=== PATIENT | male | born 1985 | race African-American/Black ===

== ENCOUNTER 2017-03-28 11:22 | Emergency (ER) | payer SELFPAY ==
--- NOTE | 2017-03-28 12:34 | ER Document Report ---
HPI - HPI Patient complains to provider of: urinary frequency, low back pain, thigh pain Onset: Last week Onset/Duration: Sudden Quality of pain: Sharp Pain Level: 2 Context: Patient presents emergency department with complaints of urinary frequency for the past week. Patient also reports low back pain and sharp pain that comes and goes to his thighs. Denies trauma. He denies fever vomiting diarrhea. He denies penile discharge. He denies testicular pain. He denies pain with void. Patient also denies pain with sex and denies pain with ejaculation. Denies urinary or bowel incontinence or retention. Denies numbness tingling. Associated Symptoms: None Exacerbated by: Denies Relieved by: Denies Similar symptoms previously: No Recently seen / treated by doctor: No - DERM Skin Color: Normal, [place] Past Medical History - General Information source: Patient - Social History Smoking Status: Current Every Day Smoker Cigarette use (# per day): Yes Frequency of alcohol use: Heavy Drug Abuse: Marijuana Occupation: [id number] Family History: DM - mom Patient has suicidal ideation: No Patient has homicidal ideation: No - Medical History Medical History: Negative Renal/ Medical History: Denies: Hx Peritoneal Dialysis Surgical Hx: Negative Vertical Provider Document - CONSTITUTIONAL Agree With Documented VS: Yes Exam Limitations: No Limitations General Appearance: WD/WN, No Apparent Distress - INFECTION CONTROL TRAVEL OUTSIDE OF THE [place] IN LAST 30 DAYS: No - HEENT HEENT: Atraumatic, Normocephalic - NECK Neck: Normal Inspection, Supple. negative: Lymphadenopathy-Left, Lymphadenopathy-Right - RESPIRATORY Respiratory: Breath Sounds Normal, No Respiratory Distress O2 Sat by Pulse Oximetry: 99 - CARDIOVASCULAR Cardiovascular: Regular Rate, Regular Rhythm - GI/ABDOMEN Gastrointestinal: Abdomen Soft, Abdomen Non-Tender - BACK Back: Normal Inspection - No obvious deformity take good distal movement and sensation - MUSCULOSKELETAL/EXTREMETIES Musculoskeletal/Extremeties: MAEW, FROM, Non-Tender - NEURO Level of Consciousness: Awake, Alert, Appropriate Motor/Sensory: No Motor Deficit - DERM Integumentary: Warm, Dry Course - Re-evaluation Re-evalutation: 03/28/17 12:32 Patient instructed on STD cultures pending and UA pending. Patient reports he doesn't think he has an STD. We will wait for the UA and discharge, contact patient with the culture results. 03/28/17 13:05 UA negative, pt informed he will be contacted for positive STD cultures. He was instructed follow up with his primary care provider or the health department. He verbalized understanding to all instructions. 03/28/17 16:38 +chlamydia, attempted to contact patient without sucess, message left to contact the culture nurse or myself at [phone] - Vital Signs Vital signs: Temp Pulse Resp BP Pulse Ox 98.5 F 80 18 141/91 H 99 03/28/17 11:25 03/28/17 11:25 03/28/17 11:25 03/28/17 11:25 03/28/17 11:25 Discharge - Discharge Clinical Impression: Urinary frequency, Elevated blood pressure reading Condition: Stable Disposition: HOME, SELF-CARE Instructions: [facility] [place] Additional Instructions: *You have been evaluated for urinary frequency *The STD cultures are pending, you will be contacted should you need antibiotics *Take medication as prescribed *Push fluids *Follow up with your primary care provider or the health department within one week for recheck. *Plan urine recheck in one week *Return to ED for worsening condition, changes, needs Monitor your blood pressure. Your blood pressure was elevated today. This may be because you were anxious, in pain or because you need medication. It is important to follow up with your primary care provider for full evaluation. Forms: Elevated Blood Pressure, Return to Work
[2017-03-28 12:56] LABS: APPEARANCE,URINE CLEAR; BILIRUBIN,URINE NEGATIVE (NEGATIVE); GLUCOSE, URINE NEGATIVE (NEGATIVE); KETONES,URINE NEGATIVE (NEGATIVE); LEUKOCYTE ESTERASE,URINE NEGATIVE (NEGATIVE); NITRITE,URINE NEGATIVE (NEGATIVE); PROTEIN,URINE NEGATIVE (NEGATIVE); URINE SPECIFIC GRAVITY 1.021
[2017-03-28 13:26] VITALS: BP 135/85
[2017-03-28 14:11] LABS: CHLAM PCR DETECTED (NOT DETECT)
== END 2017-03-28 13:27 | disposition home or self-care (01) ==
LOC: ER 11:22
DX: R35.0 Frequency of micturition (principal); M54.5 Low back pain; R03.0 Elevated blood-pressure reading, without diagnosis of hypertension; M79.652 Pain in left thigh; M79.651 Pain in right thigh; F17.210 Nicotine dependence, cigarettes, uncomplicated
CPT/HCPCS: 81001; 87491; 87591; 99283

== ENCOUNTER 2017-06-02 13:37 | Emergency (ER) | payer MEDICARE, MEDICAID ==
--- NOTE | 2017-06-02 14:57 | ER Document Report ---
ED General Pain - General Chief Complaint: Pain All Over Stated Complaint: BODY PAIN Time Seen by Provider: 06/02/17 14:20 Mode of Arrival: Ambulatory Information source: Patient Notes: 1-year-old male presents to ED for pain all over. He states it started in his left shoulder now hurts everywhere. Denies any fever does have chronic migraines. States he came in a couple months ago for the same thing and found it that he had chlamydia was treated states he waited several days patient and his partner were treated them they had sex again. Has a history history of migraines and he is a heavy drinker states he has a lot of belly pain back pain shoulder pain does not do any heavy lifting. TRAVEL OUTSIDE OF THE [place] IN LAST 30 DAYS: No - HPI Onset: Other - 4-5 days Onset/Duration: Sudden Quality of pain: Achy Severity: Mild Pain Level: 1 Context: General body pain Associated symptoms: None Exacerbated by: Movement Relieved by: Denies Similar symptoms previously: Yes Recently seen / treated by doctor: No - Related Data Allergies/Adverse Reactions: No Known Allergies Allergy (Unverified 03/28/17 11:25) Past Medical History - General Information source: Patient - Social History Smoking Status: Current Every Day Smoker Cigarette use (# per day): Yes - Pack per day Chew tobacco use (# tins/day): No Smoking Education Provided: Yes - Less than 2 minutes Frequency of alcohol use: Heavy Drug Abuse: Marijuana Occupation: At this time Lives with: Spouse/Significant other Family History: Arthritis, DM - mom, Hypertension. denies: CAD, COPD, CVA, Hyperlipidemia, Malignancy, Thyroid Disfunction Patient has suicidal ideation: No Patient has homicidal ideation: No - Past Medical History Cardiac Medical History: Reports: None Pulmonary Medical History: Reports: None EENT Medical History: Reports: None Neurological Medical History: Reports: Hx Migraine Endocrine Medical History: Reports: None Renal/ Medical History: Reports: None. Denies: Hx Peritoneal Dialysis Malignancy Medical History: Reports None GI Medical History: Reports: Hx Gastroesophageal Reflux Disease Musculoskeltal Medical History: Reports Hx Arthritis, Reports Hx Musculoskeletal Deformity, Reports Hx Musculoskeletal Trauma Skin Medical History: Reports None Psychiatric Medical History: Reports: None Traumatic Medical History: Reports: Hx Fractures Infectious Medical History: Reports: None Past Surgical History: Reports: Hx Orthopedic Surgery - Tendon repaired to finger Review of Systems - Review of Systems Constitutional: No symptoms reported EENT: No symptoms reported Cardiovascular: No symptoms reported Respiratory: No symptoms reported Gastrointestinal: No symptoms reported Genitourinary: No symptoms reported Male Genitourinary: No symptoms reported Musculoskeletal: Muscle pain Skin: No symptoms reported Hematologic/Lymphatic: No symptoms reported Neurological/Psychological: Headaches -: Yes All other systems reviewed and negative Physical Exam - Vital signs Vitals: Temp Pulse Resp BP Pulse Ox 98.6 F 89 18 155/104 H 99 06/02/17 13:50 06/02/17 13:50 06/02/17 13:50 06/02/17 13:50 06/02/17 13:50 Interpretation: Normal - General General appearance: Appears well, Alert - HEENT Head: Normocephalic, Atraumatic Eyes: Normal Pupils: PERRL - Respiratory Respiratory status: No respiratory distress Chest status: Nontender Breath sounds: Normal Chest palpation: Normal - Cardiovascular Rhythm: Regular Heart sounds: Normal auscultation Murmur: No - Abdominal Inspection: Normal Distension: No distension. No: Distended Bowel sounds: Normal Tenderness: Nontender. No: Tender Organomegaly: No organomegaly - Back Back: Normal, Nontender - Extremities General upper extremity: Normal inspection, Nontender, Normal color, Normal ROM , Normal temperature General lower extremity: Normal inspection, Nontender, Normal color, Normal ROM , Normal temperature, Normal weight bearing. No: Elaine's sign - Neurological Neuro grossly intact: Yes Cognition: Normal Orientation: AAOx4 Zoran Coma Scale Eye Opening: Spontaneous Epes Coma Scale Verbal: Oriented Zoran Coma Scale Motor: Obeys Commands Epes Coma Scale Total: 15 Speech: Normal Motor strength normal: LUE, RUE, LLE, RLE Sensory: Normal - Psychological Associated symptoms: Normal affect, Normal mood - Skin Skin Temperature: Warm Skin Moisture: Dry Skin Color: Normal Course - Vital Signs Vital signs: Temp Pulse Resp BP Pulse Ox 98.6 F 73 18 138/97 H 99 06/02/17 13:50 06/02/17 15:55 06/02/17 15:55 06/02/17 15:55 06/02/17 15:55 Discharge - Discharge Clinical Impression: Body aches, Concern about STD in male without diagnosis Condition: Stable Disposition: HOME, SELF-CARE Instructions: Family Physicians / Practices Additional Instructions: Seen today for body aches and concern for STD. Urinalysis was negative but your GC and chlamydia will not be ready for 3 hours. Please call [phone] between 6 and 9 for your results and ask for Willie. Treated with Rocephin and Zithromax and before you leave today. Rocephin You have been given an injection of an antibiotic called Rocephin ( ceftriaxone). Sometimes the injection must be combined with antibiotic pills. For some infections, such as an uncomplicated ear infection, Rocephin provides all the antibiotic that's needed. The antibiotic will be in your body for about two days. For serious infections, we usually repeat doses of Rocephin daily. Side effects are very unusual following a shot. Women may develop vaginal yeast infections, and babies can get yeast (thrush) in the mouth following the use of antibiotics. Contact your physician if you have symptoms with this medication. Allergy to this antibiotic can result in hives, wheezing, faintness, or itching. If symptoms of allergy occur, call the doctor at once. AZITHROMYCIN: Azithromycin (Zithromax) is a broad spectrum antibiotic in the same class as erythromycin. It can treat a variety of bacterial infections, but is most frequently used for respiratory infections. Azithromycin is extremely long-lasting. It accumulates in body tissues and continues to kill bacteria for many days. In order to improve absorption, Azithromycin should be taken at least one hour before or two hours after a meal. It does not have the same strong tendency to upset the stomach as erythromycin and is usually very well tolerated. Patients who have had a rash or other true allergic reactions to erythromycin should not take this medication. Call if you develop gastrointestinal distress, severe diarrhea, rash, hives, itching, or shortness of breath. FOLLOW-UP CARE: If you have been referred to a physician for follow-up care, call the physician s office for an appointment as you were instructed or within the next two days. If you experience worsening or a significant change in your symptoms, notify the physician immediately or return to the Emergency Department at any time for re-evaluation. Forms: Elevated Blood Pressure, Smoking Cessation Education
[2017-06-02 15:20] LABS: APPEARANCE,URINE CLEAR; BILIRUBIN,URINE NEGATIVE (NEGATIVE); GLUCOSE, URINE NEGATIVE (NEGATIVE); KETONES,URINE NEGATIVE (NEGATIVE); LEUKOCYTE ESTERASE,URINE NEGATIVE (NEGATIVE); NITRITE,URINE NEGATIVE (NEGATIVE); PROTEIN,URINE NEGATIVE (NEGATIVE); URINE SPECIFIC GRAVITY 1.027; UROBILINOGEN,URINE NEGATIVE mg/dL (<2.0)
[2017-06-02] MEDS ORDERED: LIDOCAINE 1% INJ-PF (10 MG/ML) 30 ML SDV INJ ONE (15:36)
[2017-06-02] MEDS ORDERED: AZITHROMYCIN 250 MG TABLET PO ONE (15:36)
[2017-06-02] MEDS ORDERED: CEFTRIAXONE INJ 250 MG VIAL IM ONE (15:36)
[2017-06-02 15:56] VITALS: BP 138/97
[2017-06-02 16:47] LABS: CHLAM PCR NOT DETECTED (NOT DETECT)
== END 2017-06-02 16:11 | disposition home or self-care (01) ==
LOC: ER 13:37
DX: M79.1 Myalgia (principal); M25.519 Pain in unspecified shoulder; R51 Headache; F17.210 Nicotine dependence, cigarettes, uncomplicated; Z20.2 Contact with and (suspected) exposure to infections with a predominantly sexual mode of transmission
CPT/HCPCS: 99283; 96372; 81001; 87491; 87591; A9270; J3490; J0696

== ENCOUNTER 2018-01-02 11:56 | Emergency (ER) | payer MEDICAID, MEDICARE ==
[2018-01-02] MEDS ORDERED: IBUPROFEN 800 MG TABLET PO ONE (13:44)
[2018-01-02] MEDS ORDERED: PSEUDOEPHEDRINE HCL 30 MG TABLET PO ONE (13:46)
--- NOTE | 2018-01-02 13:51 | ER Document Report ---
HPI - HPI Onset: Yesterday Onset/Duration: Gradual Quality of pain: Achy Pain Level: 2 Context: Patient presents with flulike symptoms that started yesterday. Patient complains of cough, fever and body aches. Associated Symptoms: Body/muscle aches, Nonproductive cough, Fever, Rhinnorhea Exacerbated by: Denies Relieved by: Denies Similar symptoms previously: No Recently seen / treated by doctor: No - ROS ROS below otherwise negative: Yes Systems Reviewed and Negative: Yes All other systems reviewed and negative - CONSTITUTIONAL Constitutional: REPORTS: Fever, Chills - EENT EENT: REPORTS: Sore Throat, Congestion - RESPIRATORY Respiratory: REPORTS: Coughing - GASTROINTESTINAL Gastrointestinal: DENIES: Patient vomiting - DERM Skin Color: Normal Skin Problems: None Past Medical History - General Information source: Patient - Social History Smoking Status: Current Every Day Smoker Smoking Education Provided: Yes Frequency of alcohol use: Occasional Drug Abuse: None Occupation: stocking Lives with: Family Family History: Arthritis, DM - mom, Hypertension. denies: CAD, COPD, CVA, Hyperlipidemia, Malignancy, Thyroid Disfunction Neurological Medical History: Reports: Hx Migraine Renal/ Medical History: Denies: Hx Peritoneal Dialysis GI Medical History: Reports: Hx Gastroesophageal Reflux Disease Musculoskeltal Medical History: Reports Hx Arthritis, Reports Hx Musculoskeletal Deformity, Reports Hx Musculoskeletal Trauma Traumatic Medical History: Reports: Hx Fractures Past Surgical History: Reports: Hx Orthopedic Surgery - Tendon repaired to finger Vertical Provider Document - CONSTITUTIONAL Agree With Documented VS: Yes Exam Limitations: No Limitations General Appearance: WD/WN, No Apparent Distress - INFECTION CONTROL TRAVEL OUTSIDE OF THE [place] IN LAST 30 DAYS: No - HEENT HEENT: Atraumatic, Normocephalic, Pharyngeal Erythema. negative: Pharyngeal Exudate, Pharyngeal Tenderness, Tympanic Membrane Red, Tympanic Membrane Bulging - NECK Neck: Normal Inspection, Supple. negative: Lymphadenopathy-Left, Lymphadenopathy-Right - RESPIRATORY Respiratory: Breath Sounds Normal, No Respiratory Distress, Chest Non-Tender O2 Sat by Pulse Oximetry: 99 Notes: dry cough - CARDIOVASCULAR Cardiovascular: Regular Rate, Regular Rhythm, No Murmur - BACK Back: Normal Inspection - MUSCULOSKELETAL/EXTREMETIES Musculoskeletal/Extremeties: MAEW, FROM - NEURO Level of Consciousness: Awake, Alert, Appropriate Motor/Sensory: No Motor Deficit - DERM Integumentary: Warm, Dry, No Rash Course - Re-evaluation Re-evalutation: 01/02/18 13:47 Patient presents with symptoms consistent with a flulike illness. Patient does present within the first 48 hours of symptom onset. Patient offered Tamiflu prescription per CDC guidelines. Discussed efficacy and side effect profile with patient. - Vital Signs Vital signs: Temp Pulse Resp BP Pulse Ox 99.0 F 101 H 20 156/95 H 99 01/02/18 12:30 01/02/18 12:30 01/02/18 12:30 01/02/18 12:30 01/02/18 12:30 Discharge - Discharge Clinical Impression: Elevated blood pressure reading, Flu-like symptoms Condition: Stable Disposition: HOME, SELF-CARE Instructions: Influenza (OM) Additional Instructions: Return immediately for any new or worsening symptoms Followup with your primary care provider, call tomorrow to make a followup appointment Prescriptions: Guaifenesin/Pseudoephedrne HCl [Mucinex D ER Tablet] 1 each PO Q12 PRN #12 tab.er.12h PRN Reason: Naproxen [Naprosyn 250 Nmg Tablet] 1 tab PO BID #14 tablet Forms: Elevated Blood Pressure, Smoking Cessation Education, Return to Work Referrals: [facility] [Provider Group] - Follow up as needed [facility] [Provider Group] - Follow up as needed
[2018-01-02 14:00] VITALS: BP 141/97
== END 2018-01-02 14:03 | disposition home or self-care (01) ==
LOC: ER 11:56
DX: R05 Cough (principal); R50.9 Fever, unspecified; M79.1 Myalgia; J34.89 Other specified disorders of nose and nasal sinuses; R11.10 Vomiting, unspecified; R03.0 Elevated blood-pressure reading, without diagnosis of hypertension; F17.200 Nicotine dependence, unspecified, uncomplicated; Z82.49 Family history of ischemic heart disease and other diseases of the circulatory system
CPT/HCPCS: 99283; A9270 ×2

== ENCOUNTER 2018-02-11 08:18 | Emergency (ER) | payer MEDICARE ==
[2018-02-11 08:25] VITALS: BP 153/93
--- NOTE | 2018-02-11 08:59 | RADIOLOGY REPORT (SQ) ---
EXAM DESCRIPTION: HAND RIGHT 3 VIEWS COMPLETED DATE/TIME: 02/11/2018 8:42 am REASON FOR STUDY: sudde onset right hand pain COMPARISON: None. EXAM PARAMETERS: NUMBER OF VIEWS: Three views. TECHNIQUE: AP, lateral and oblique radiographic images acquired of the right hand. LIMITATIONS: None. FINDINGS: MINERALIZATION: Normal. BONES: No acute fracture or dislocation. No worrisome bone lesions. No significant osteophytes. JOINTS: No erosions. No tim-articular osteopenia. No chondrocalcinosis. SOFT TISSUES: No swelling. No calcifications. OTHER: No other significant finding. IMPRESSION: NEGATIVE STUDY OF THE RIGHT HAND. NO EXPLANATION FOR PAIN. TECHNICAL DOCUMENTATION: JOB ID: [id number] [employer] All Rights Reserved Reading location - IP/workstation name: [email or web address]
--- NOTE | 2018-02-11 09:18 | ER Document Report ---
ED General - General Chief Complaint: Hand Pain Stated Complaint: HAND PAIN Time Seen by Provider: 02/11/18 08:27 Mode of Arrival: Ambulatory Information source: Patient, Relative TRAVEL OUTSIDE OF THE [place] IN LAST 30 DAYS: No - HPI Notes: 32-year-old male presents today with complaints of right hand swelling and tenderness near his thumb and first 2 fingers on the palmar side 6 days. Pain is a dull ache, tried ibuprofen with some relief. Denies any trauma. Patient is not currently working however some time doing video games. Patient is right- hand dominant. Denies any numbness or tingling in hands or arm. States sometimes he does get a shooting pain up his arm. Denies any prior history of hand trauma or neuropathy. Denies prior history of shoulder or neck injury. Pain is 2 out of 10. Denies fevers, chills, chest pain,palpitations, shortness of breath, dyspnea, headaches, URI, neck pain, weakness, bowel or bladder dysfunction, saddle anesthesia, numbness or tingling in bilateral upper or lower extremities equally, muscle paralysis, weakness in bilateral upper or lower extremities equally or rash. Denies IV drug use. - Related Data Allergies/Adverse Reactions: No Known Allergies Allergy (Verified 01/02/18 11:57) Past Medical History - Social History Smoking Status: Current Every Day Smoker Chew tobacco use (# tins/day): No Frequency of alcohol use: Occasional Drug Abuse: None Family History: Arthritis, DM - mom, Hypertension. denies: CAD, COPD, CVA, Hyperlipidemia, Malignancy, Thyroid Disfunction Patient has suicidal ideation: No Patient has homicidal ideation: No Neurological Medical History: Reports: Hx Migraine Renal/ Medical History: Denies: Hx Peritoneal Dialysis GI Medical History: Reports: Hx Gastroesophageal Reflux Disease Musculoskeltal Medical History: Reports Hx Arthritis, Reports Hx Musculoskeletal Deformity, Reports Hx Musculoskeletal Trauma Traumatic Medical History: Reports: Hx Fractures Past Surgical History: Reports: Hx Orthopedic Surgery - Tendon repaired to finger, right knee Review of Systems - Review of Systems Notes: REVIEW OF SYSTEMS: CONSTITUTIONAL : Denies fever, chills, or sweats. Denies recent illness. EENT: Denies eye, ear, throat, or mouth pain or symptoms. Denies nasal or sinus congestion or discharge. Denies throat, tongue, or mouth swelling or difficulty swallowing. CARDIOVASCULAR: Denies chest pain. Denies palpitations or racing or irregular heart beat. Denies ankle edema. RESPIRATORY: Denies cough, cold, or chest congestion. Denies shortness of breath, difficulty breathing, or wheezing. GASTROINTESTINAL: Denies abdominal pain or distention. Denies nausea, vomiting , or diarrhea. Denies blood in vomitus, stools, or per rectum. Denies black, tarry stools. Denies constipation. GENITOURINARY: Denies difficulty urinating, painful urination, burning, frequency, blood in urine, or discharge. MUSCULOSKELETAL: + right hand pain and swelling. Denies back or neck pain or stiffness. Denies joint pain or swelling. SKIN: Denies rash, lesions or sores. HEMATOLOGIC : Denies easy bruising or bleeding. LYMPHATIC: Denies swollen, enlarged glands. NEUROLOGICAL: Denies confusion or altered mental status. Denies passing out or loss of consciousness. Denies dizziness or lightheadedness. Denies headache. Denies weakness or paralysis or loss of use of either side. Denies problems with gait or speech. Denies sensory loss, numbness, or tingling. Denies seizures. PSYCHIATRIC: Denies anxiety or stress. Denies depression, suicidal ideation, or homicidal ideation. ALL OTHER SYSTEMS REVIEWED AND NEGATIVE. Dictation was performed using [email or web address] voice recognition software PHYSICAL EXAMINATION: GENERAL: Well-appearing, well-nourished and in no acute distress. HEAD: Atraumatic, normocephalic. EYES: Pupils equal round and reactive to light, extraocular movements intact, sclera anicteric, conjunctiva are normal. ENT: Nares patent, oropharynx clear without exudates. Moist mucous membranes. NECK: Normal range of motion, supple without lymphadenopathy LUNGS: Breath sounds clear to auscultation bilaterally and equal. No wheezes rales or rhonchi. HEART: Regular rate and rhythm without murmurs ABDOMEN: Soft, nontender, nondistended abdomen. No guarding, no rebound. No masses appreciated. Musculoskeletal: Normal range of motion, no pitting or edema. No cyanosis. right hand swelling distal to 1st, 2nd and 3rd phalange on palmar aspect. no erythema, warmth to touch, open wounds, drainage or induration noted. noted pain with flexion, extension, abduction, adduction of first 3 digits. Full motor and sensory function in MIGUEL A. [employer] + 2 BUE equally. Snuffbox tenderness negative. Ulnar and radial pulses + 2 BUE equally. No vascular compromise. No deformity noted of hand or wrist bilaterally. No body crepitus or focal area of TTP. Motor and sensory function of ulnar, radial, medial nerves intact bilaterally and equally. NEUROLOGICAL: Cranial nerves grossly intact. Normal speech, normal gait. Normal sensory, motor exams PSYCH: Normal mood, normal affect. SKIN: Warm, Dry, normal turgor, no rashes or lesions noted. Physical Exam - Vital signs Vitals: Temp Pulse Resp BP Pulse Ox 97.9 F 86 16 153/93 H 97 02/11/18 08:22 02/11/18 08:22 02/11/18 08:22 02/11/18 08:22 02/11/18 08:22 Course - Re-evaluation Re-evalutation: 02/11/18 09:20 Healthy 32-year-old male here for evaluation of right hand swelling and pain for the last 6 days. Discussed with patient that x-ray of hand was negative for any acute findings such as fracture dislocation or foreign body. Discussed with patient that this is likely due from a tendinitis due to repetitive hand motion whether it be from playing video games or using his cell phone. Advised him to apply heat 2020 minutes off several times a day, to take anti- inflammatories with food, elevate, wear Amos bandage as directed. And to limit activities where he would be using his thumb repetitively. Advised if symptoms become worse to return to the emergency room. Follow-up with PCP needed. all questions and concerns answered by this provider. Patient verbalized understanding of plan of care and agree with plan of care. Patient was discharged home. After performing a Medical Screening Examination, I estimate there is LOW risk for CLOSED FRACTURE, COMPARTMENT SYNDROME, TENDON RUPTURE, ACUTE NEUROVASCULAR INJURY, or RETAINED FOREIGN BODY, thus I consider the discharge disposition reasonable. Also, there is no evidence or peritonitis, sepsis, or toxicity. I have reevaluated this patient multiple times and no significant life threatening changes are noted. The patient and I have discussed the diagnosis and risks, and we agree with discharging home with close follow-up with the understanding that symptoms and presentations can change. We also discussed returning to the Emergency Department immediately if new or worsening symptoms occur. We have discussed the symptoms which are most concerning (e.g., changing or worsening pain, fever, numbness, weakness, cool or painful digits) that necessitate immediate return. - Vital Signs Vital signs: Temp Pulse Resp BP Pulse Ox 97.9 F 86 16 153/93 H 97 02/11/18 08:22 02/11/18 08:22 02/11/18 08:22 02/11/18 08:22 02/11/18 08:22 Discharge - Discharge Clinical Impression: Hand tendonitis Condition: Good Disposition: HOME, SELF-CARE Instructions: Sprain ([facility]), Sprained Thumb ([facility]) Additional Instructions: Sprained Hand You have a sprain of the hand. A sprain is an over-stretching or tearing of the ligaments which guard the joint. The injury may require a few weeks of protection while it heals. The usual treatment is heat packs, elevation, and rest of the hand. An amos is usually placed. Your physician has assessed the seriousness of the ligament injury in your hand and has outlined the initial treatment plan. Understand that this treatment may change, depending on how your thumb progresses. If further exams were recommended, it's important that you follow up as instructed. Call the doctor any time if swelling or pain becomes severe, or if numbness develops in the hand or thumb An x-ray was negative for any acute findings. Apply heat 20 minutes on 20 minutes off several times a day. Keep elevated, wear Amos bandage for majority of day. Take [id number] ibuprofen and Tylenol as needed for pain. Follow up with her primary care within 1 week. If you are still having persistent symptoms, you may benefit from seeing phone specialist. Return to the ER symptoms are coming worse. Please follow up with the [facility] [id number] [address] Return immediately for any new or worsening symptoms. Follow up with primary care provider, call tomorrow to make followup appointment. Referrals: SHOLA QUEEN MD [ACTIVE STAFF] - Follow up in 1 week JAYDEN STONE MD [ACTIVE STAFF] - Follow up in 1 week
== END 2018-02-11 09:31 | disposition home or self-care (01) ==
LOC: ER 08:18
DX: M77.9 Enthesopathy, unspecified (principal); M79.641 Pain in right hand; F17.200 Nicotine dependence, unspecified, uncomplicated; Z98.890 Other specified postprocedural states
CPT/HCPCS: 99283

== ENCOUNTER 2018-03-19 14:51 | Emergency (ER) | payer MEDICARE ==
[2018-03-19] MEDS ORDERED: PHENAZOPYRIDINE HCL 200 MG TABLET PO ONE (16:22)
--- NOTE | 2018-03-19 16:23 | ER Document Report ---
ED Medical Screen (RME) - General Chief Complaint: Urinary Problem Stated Complaint: PAINFUL URINATION Time Seen by Provider: 03/19/18 16:22 Notes: Patient complains of 2 days of increasing pain with urination. He has not appreciated any blood in his urine. TRAVEL OUTSIDE OF THE [place] IN LAST 30 DAYS: No - Related Data Allergies/Adverse Reactions: No Known Allergies Allergy (Verified 03/19/18 16:03) Past Medical History - Social History Chew tobacco use (# tins/day): No Frequency of alcohol use: Occasional Drug Abuse: None Neurological Medical History: Reports: Hx Migraine Renal/ Medical History: Denies: Hx Peritoneal Dialysis GI Medical History: Reports: Hx Gastroesophageal Reflux Disease Musculoskeltal Medical History: Reports Hx Arthritis, Reports Hx Musculoskeletal Deformity, Reports Hx Musculoskeletal Trauma Traumatic Medical History: Reports: Hx Fractures Past Surgical History: Reports: Hx Orthopedic Surgery - Tendon repaired to finger, right knee Physical Exam - Vital signs Vitals: Temp Pulse Resp BP Pulse Ox 98.8 F 90 18 147/96 H 97 03/19/18 15:28 03/19/18 15:28 03/19/18 15:28 03/19/18 15:28 03/19/18 15:28 Course - Vital Signs Vital signs: Temp Pulse Resp BP Pulse Ox 98.8 F 90 18 147/96 H 97 03/19/18 15:28 03/19/18 15:28 03/19/18 15:28 03/19/18 15:28 03/19/18 15:28
[2018-03-19 16:32] LABS: APPEARANCE,URINE CLEAR; BILIRUBIN,URINE NEGATIVE (NEGATIVE); COLOR,URINE YELLOW; GLUCOSE, URINE NEGATIVE (NEGATIVE); KETONES,URINE NEGATIVE (NEGATIVE); LEUKOCYTE ESTERASE,URINE NEGATIVE (NEGATIVE); NITRITE,URINE NEGATIVE (NEGATIVE); PROTEIN,URINE NEGATIVE (NEGATIVE); URINE SPECIFIC GRAVITY 1.021
[2018-03-19] MEDS ORDERED: CEFTRIAXONE INJ 250 MG VIAL IM ONE (17:17)
[2018-03-19] MEDS ORDERED: AZITHROMYCIN 250 MG TABLET PO ONE (17:17)
[2018-03-19] MEDS ORDERED: LIDOCAINE 1% INJ-PF (10 MG/ML) 30 ML SDV INJ ONE (17:17)
--- NOTE | 2018-03-19 17:28 | ER Document Report ---
ED GI/ - General Chief Complaint: Urinary Problem Stated Complaint: PAINFUL URINATION Time Seen by Provider: 03/19/18 16:22 Mode of Arrival: Ambulatory Information source: Patient TRAVEL OUTSIDE OF THE [place] IN LAST 30 DAYS: No - HPI Patient complains to provider of: Dysuria Notes: 03/19/18 17:18 Patient is here with complaints of dysuria. He states that she had pain with urination for the last 2 days. Seems to progressively be getting worse. He denies any penile discharge. No rash. No abdominal pain. No nausea, vomiting , diarrhea. No fever. He denies any testicular pain or swelling. He is sexually active with one partner. His partner denies any symptoms at this time. He denies any chest pain or shortness of breath. Nothing seems to make the symptoms better. He has no other complaints at this time. - Related Data Allergies/Adverse Reactions: No Known Allergies Allergy (Verified 03/19/18 16:03) Past Medical History - Social History Smoking Status: Unknown if Ever Smoked Chew tobacco use (# tins/day): No Frequency of alcohol use: Occasional Drug Abuse: None Family History: Arthritis, DM - mom, Hypertension. denies: CAD, COPD, CVA, Hyperlipidemia, Malignancy, Thyroid Disfunction Patient has suicidal ideation: No Patient has homicidal ideation: No Neurological Medical History: Reports: Hx Migraine Renal/ Medical History: Denies: Hx Peritoneal Dialysis GI Medical History: Reports: Hx Gastroesophageal Reflux Disease Musculoskeltal Medical History: Reports Hx Arthritis, Reports Hx Musculoskeletal Deformity, Reports Hx Musculoskeletal Trauma Traumatic Medical History: Reports: Hx Fractures Past Surgical History: Reports: Hx Orthopedic Surgery - Tendon repaired to finger, right knee Review of Systems - Review of Systems -: Yes All other systems reviewed and negative Physical Exam - Vital signs Vitals: Temp Pulse Resp BP Pulse Ox 98.8 F 90 18 147/96 H 97 03/19/18 15:28 03/19/18 15:28 03/19/18 15:28 03/19/18 15:28 03/19/18 15:28 - Notes Notes: GENERAL: alert, cooperative, nontoxic, no distress. HEAD: normocephalic, atraumatic EYES: conjunctiva pink without discharge, no external redness or swelling. EARS: no external swelling, no external redness NOSE: atraumatic, no external swelling MOUTH/THROAT: mucous membranes moist and pink, posterior pharynx without erythema, swelling, exudate. No trismus or drooling. NECK: soft, supple, full range of motion, no meningismus. CHEST: no distress, lungs clear and equal throughout. No wheezing, rales, rhonchi. CARDIAC: regular rate and rhythm, no murmur, normal capillary refill, normal pulses. No peripheral edema noted. ABDOMEN: Soft, nontender. No rebound tenderness or guarding. No mass. BACK: full range of motion, no CVA tenderness. EXTREMITIES: full range of motion of all extremities. No redness, no swelling. NEURO: alert and oriented x 3, no focal deficits, full range of motion of all extremities. PYSCH: appropriate mood, affect. Patient is cooperative. SKIN: pink, warm, dry, no rash. : Circumcised penis with no rash. Testicular exam is normal with no mass or tenderness. Scrotal skin is normal with no redness or crepitus. No mass. No penile discharge. Course - Re-evaluation Re-evalutation: 03/19/18 17:55 Patient is nontoxic appearing with stable vitals. The patient is here with complaints of dysuria. No penile discharge. Urinalysis shows no obvious signs of infection. Motility exam is unremarkable with no discharge, testicular pain or swelling, rash. Patient is sexually active. This point gonorrhea and Chlamydia cultures are currently pending. The patient will be given Rocephin and Zithromax in the emergency department for prophylactic treatment. He will be contacted for any positive results to notify his partner. Otherwise patient will be discharged home with prescription for Pyridium for his dysuria as well as instructions to drink lots of water. Follow-up if not improving in the next 3-5 days, sooner for worsening pain, fever, abdominal pain, vomiting, discharge , rash, or for any further concerns. The patient is noted to have elevated blood pressure during today's emergency department visit. The patient was informed of this finding. The patient was instructed that this may be related to pre-hypertension and requires further evaluation with a primary care provider. The patient has no hypertensive symptoms at this time. The patient's emergency department workup and current diagnosis were explained to the patient and or family. Follow-up instructions were provided. Medications if prescribed were discussed. Instructions for when to return to the emergency department including specific worrisome symptoms were discussed with the patient and/or family. - Vital Signs Vital signs: Temp Pulse Resp BP Pulse Ox 98.8 F 90 18 147/96 H 97 03/19/18 15:28 03/19/18 15:28 03/19/18 15:28 03/19/18 15:28 03/19/18 15:28 - Laboratory Laboratory results interpreted by me: 03/19/18 16:10 Urine Urobilinogen 2.0 H Discharge - Discharge Clinical Impression: Urethritis Condition: Stable Disposition: HOME, SELF-CARE Instructions: Urethritis ([facility]) Additional Instructions: Take medications as prescribed. Take Tylenol Motrin as needed for pain. Drink lots of water. Follow-up if not better in the next 3-5 days, sooner for worsening pain, fever, abdominal pain, persistent vomiting, rash, swelling, or for any further concerns. Your blood pressure was elevated during today's visit. Have this rechecked with your doctor. Prescriptions: Phenazopyridine HCl [Pyridium 200 mg Tablet] 200 mg PO TID #9 tablet Forms: Elevated Blood Pressure, Smoking Cessation Education Referrals: [facility] [Provider Group] - Follow up as needed
[2018-03-19 18:17] VITALS: BP 157/92
[2018-03-19 19:14] LABS: CHLAM PCR NOT DETECTED (NOT DETECT); GON PCR NOT DETECTED (NOT DETECT)
== END 2018-03-19 18:17 | disposition home or self-care (01) ==
LOC: ER 14:51
DX: N34.2 Other urethritis (principal); R30.0 Dysuria; R03.0 Elevated blood-pressure reading, without diagnosis of hypertension
CPT/HCPCS: 99283; 96372; 87086; 81001; 87491; 87591; A9270 ×2; J3490; J0696

== ENCOUNTER 2018-03-22 18:13 | Emergency (ER) | payer MEDICARE ==
[2018-03-22] MEDS ORDERED: NORMAL SALINE 1000 ML 1,000 ML IV ONE (18:54)
[2018-03-22] MEDS ORDERED: KETOROLAC TROMETHAMINE INJ/PF 30 MG/1 ML SDV IV ONE (18:55)
[2018-03-22] MEDS ORDERED: ONDANSETRON HCL INJ/PF 4 MG/2 ML SDV IV ONE (18:55)
--- NOTE | 2018-03-22 19:00 | ER Document Report ---
ED Medical Screen (RME) - General Chief Complaint: Pain With Urination Stated Complaint: PAINFUL URINATION Time Seen by Provider: 03/22/18 18:36 TRAVEL OUTSIDE OF THE [place] IN LAST 30 DAYS: No - HPI Notes: 03/22/18 18:55 Patient is a 32-year-old male who returns to the ED for second visit this week complaining of urethral pain, dysuria, and additional abdominal pain, flank pain , and back pain. Patient states that he had several acute exacerbations of the pain at once which almost made him pass out so he called the EMS to bring him to the hospital. Patient has been taking Pyridium since his last appointment. Patient states that he has had some nausea as well without any vomiting. He is having normal bowel movements. Denies any drug allergies. Denies any headache , fever, URI, sore throat, chest pain, palpitations, syncope, cough, shortness of breath, wheeze, dyspnea, urinary retention, loss of control of bowel or bladder, numbness/tingling, saddle anesthesia, muscle paralysis/weakness, or rash. I have treated and performed a rapid initial assessment of this patient. A comprehensive ED assessment and evaluation of the patient, analysis of test results and completion of medical decision making process will be conducted by additional ED providers. Consulted with Dr. Linares who recommended labs and CT w/o to further investigate. PHYSICAL EXAMINATION: GENERAL: Well-appearing, well-nourished and in no acute distress. A&Ox4. Answers questions appropriately. LUNGS: Breath sounds clear to auscultation bilaterally and equal. No wheezes rales or rhonchi. HEART: Regular rate and rhythm without murmurs, rubs, gallops. ABDOMEN: Soft, nondistended abdomen. No guarding, no rebound. No masses appreciated. Normal bowel sounds present. No CVA tenderness bilaterally. + tenderness, generalized. Prostate: no tenderness. Extremities: No cyanosis, clubbing, or edema b/l. NEUROLOGICAL: Normal speech, normal gait. PSYCH: Normal mood, normal affect. - Related Data Allergies/Adverse Reactions: No Known Allergies Allergy (Verified 03/22/18 18:22) Past Medical History Neurological Medical History: Reports: Hx Migraine Renal/ Medical History: Denies: Hx Peritoneal Dialysis GI Medical History: Reports: Hx Gastroesophageal Reflux Disease Musculoskeltal Medical History: Reports Hx Arthritis, Reports Hx Musculoskeletal Deformity, Reports Hx Musculoskeletal Trauma Traumatic Medical History: Reports: Hx Fractures Past Surgical History: Reports: Hx Orthopedic Surgery - Tendon repaired to finger, right knee
[2018-03-22 19:05] VITALS: BP 152/97
[2018-03-22 19:13] LABS: APPEARANCE,URINE CLEAR; BILIRUBIN,URINE NEGATIVE (NEGATIVE); COLOR,URINE AMBER; GLUCOSE, URINE NEGATIVE (NEGATIVE); KETONES,URINE 20 mg/dL (NEGATIVE); LEUKOCYTE ESTERASE,URINE NEGATIVE (NEGATIVE); NITRITE,URINE POSITIVE (NEGATIVE); PROTEIN,URINE NEGATIVE (NEGATIVE); URINE SPECIFIC GRAVITY 1.017
--- NOTE | 2018-03-22 19:20 | ER Document Report ---
ED General - General Chief Complaint: Pain With Urination Stated Complaint: PAINFUL URINATION Time Seen by Provider: 03/22/18 18:36 Notes: Patient is a 32-year-old male who presents emergency department via EMS with a chief complaint of abdominal pain, pyuria. Patient states that he was seen on Monday and sent home with Pyridium. Patient states that his pyuria has improved and now he is having abdominal pain. Describes it as generalized abdominal cramping. Denies any nausea or vomiting. Patient states his last bowel movement was approximately 3 days ago. Admits to history of GERD and hypertension. Does not have a primary care physician in the area. Denies any history of kidney stones Patient is sexually active with one partner denies any concerns for STD. Denies any testicular pain, swelling, penile discharge TRAVEL OUTSIDE OF THE [place] IN LAST 30 DAYS: No - Related Data Allergies/Adverse Reactions: No Known Allergies Allergy (Verified 03/22/18 18:22) Past Medical History - Social History Smoking Status: Unknown if Ever Smoked Family History: Arthritis, DM - mom, Hypertension. denies: CAD, COPD, CVA, Hyperlipidemia, Malignancy, Thyroid Disfunction Patient has suicidal ideation: No Patient has homicidal ideation: No Neurological Medical History: Reports: Hx Migraine Renal/ Medical History: Denies: Hx Peritoneal Dialysis GI Medical History: Reports: Hx Gastroesophageal Reflux Disease Musculoskeltal Medical History: Reports Hx Arthritis, Reports Hx Musculoskeletal Deformity, Reports Hx Musculoskeletal Trauma Traumatic Medical History: Reports: Hx Fractures Past Surgical History: Reports: Hx Orthopedic Surgery - Tendon repaired to finger, right knee Review of Systems - Review of Systems Constitutional: No symptoms reported Cardiovascular: No symptoms reported Respiratory: No symptoms reported Gastrointestinal: See HPI Genitourinary: See HPI Male Genitourinary: See HPI Musculoskeletal: No symptoms reported Physical Exam - Vital signs Vitals: Temp Pulse Resp BP Pulse Ox 99.5 F 100 18 152/97 H 94 03/22/18 19:03 03/22/18 19:03 03/22/18 19:03 03/22/18 19:03 03/22/18 19:03 - Notes Notes: PHYSICAL EXAM GENERAL: Alert, interacts well. LUNGS: Clear to auscultation bilaterally, no wheezes, rales, or rhonchi. No respiratory distress. HEART: Regular rate and rhythm. No murmurs, gallops, or rubs. ABDOMEN: Soft, mildly distended, nontender. No guarding, rebound, or rigidity.. Bowel sounds present in all 4 quadrants. Male : Normal inspection without any vesicles, lesions. Testicles nontender. Equal in size no evidence of edema. Cremasteric reflex intact bilaterally. No evidence of penile discharge EXTREMITIES: Moves all 4 extremities spontaneously. No edema, radial and dorsalis pedis pulses 2/4 bilaterally. No cyanosis. NEUROLOGICAL: Alert and oriented x4. Normal speech. PSYCH: Normal affect, normal mood. SKIN: Warm, dry, normal turgor. No rashes or lesions noted. Course - Re-evaluation Re-evalutation: 03/22/18 20:24 Patient is a 32-year-old male is hemodynamically stable, no acute distress and afebrile. No evidence of leukocytosis or anemia. Chemistry without evidence of acute renal failure, elevated liver enzymes and lipase. Urinalysis does show presence of nitrites and bacteria. CT the abdomen pelvis without any evidence of kidney stones. Appendix was not identified but patient without any right lower quadrant tenderness, fever. Patient with benign abdominal exam. Will discharge home with antibiotic to cover for patient symptomatic cystitis. Otherwise discussed strict return precautions to follow-up with primary care. - Vital Signs Vital signs: Temp Pulse Resp BP Pulse Ox 99.5 F 100 18 152/97 H 94 03/22/18 19:03 03/22/18 19:03 03/22/18 19:03 03/22/18 19:03 03/22/18 19:03 - Laboratory Result Diagrams: 03/22/18 19:10 03/22/18 19:10 Laboratory results interpreted by me: 03/22/18 03/22/18 18:44 19:10 RDW 14.7 H Plt Count 142 L Urine Ketones 20 H Urine Nitrite POSITIVE H Urine Urobilinogen 4.0 H - Diagnostic Test Radiology reviewed: Image reviewed, Reports reviewed Discharge - Discharge Clinical Impression: Cystitis Condition: Good Disposition: HOME, SELF-CARE Instructions: Urinary Tract Infection ([facility]) Prescriptions: Cephalexin Monohydrate [Keflex 500 mg Capsule] 500 mg PO BID 5 Days #20 capsule Referrals: PAIEG BARRETT MD [ACTIVE STAFF] - Follow up in 1 week
[2018-03-22 19:28] LABS: ABSOLUTE MONOCYTES (AUTO) 0.5 10^3/uL (0.1-1.4); ABSOLUTE NEUT (AUTO) 5.1 10^3/uL (1.7-8.2); BASOPHILS % (AUTO) 0.5 % (0-2); EOSINOPHILS % (AUTO) 0.3 % (0-6); HEMATOCRIT 42.5 % (37.9-51.0); HEMOGLOBIN 14.9 g/dL (13.5-17.0); LYMPHOCYTES % (AUTO) 15.6 % (13-45); MEAN CORPUSCULAR HEMOGLOBIN 29.1 pg (27.0-33.4); MEAN CORPUSCULAR VOLUME 83 fl (80-97); MONOCYTES % (AUTO) 7.9 % (3-13); PLATELET COUNT 142 10^3/uL (150-450); RED BLOOD COUNT 5.12 10^6/uL (4.35-5.55); RED CELL DISTRIBUTION WIDTH 14.7 % (11.5-14.0); SEGMENTED NEUTROPHILS % (AUTO) 75.7 % (42-78); TOTAL CELLS COUNTED % (AUTO) 100 %; WHITE BLOOD COUNT 6.7 10^3/uL (4.0-10.5)
[2018-03-22 19:45] LABS: ALANINE AMINOTRANSFERASE 53 U/L (21-72); ALBUMIN 4.6 g/dL (3.5-5.0); ALKALINE PHOSPHATASE 52 U/L (38-126); ANION GAP 13 (5-19); ASPARTATE AMINO TRANSFERASE 38 U/L (17-59); BILIRUBIN,TOTAL 0.7 mg/dL (0.2-1.3); BLOOD UREA NITROGEN 8 mg/dL (7-20); CALCIUM 9.8 mg/dL (8.4-10.2); CARBON DIOXIDE 24 mmol/L (22-30); CHLORIDE 104 mmol/L (98-107); GLUCOSE 93 mg/dL (75-110); LIPASE 97.9 U/L (23-300); TOTAL PROTEIN 7.6 g/dL (6.3-8.2)
--- NOTE | 2018-03-22 20:01 | RADIOLOGY REPORT (SQ) ---
EXAM DESCRIPTION: CT LTD RENAL STONE PROTOCOL ON COMPLETED DATE/TIME: 03/22/2018 7:25 pm REASON FOR STUDY: abd/flank pain, dysuria COMPARISON: None. TECHNIQUE: CT scan of the abdomen and pelvis performed without intravenous or oral contrast. Images reviewed with lung, soft tissue, and bone windows. Reconstructed coronal and sagittal MPR images revi ewed. All images stored on PACS. All CT scanners at this facility use dose modulation, iterative reconstruction, and/or weight based d osing when appropriate to reduce radiation dose to as low as reasonably achievable (ALARA). [facility]: Dose Right [facility]: CareDose [facility]: Dose Right [facility]: Teradose 4D [facility]: Smart Geomagic RADIATION DOSE: CT Rad equipment meets quality standard of care and radiation dose reduction techniq ues were employed. CTDIvol: 8.4 mGy. DLP: 455 mGy-cm.mGy. LIMITATIONS: None. FINDINGS: LOWER CHEST: No significant findings. No nodules or infiltrates. NON-CONTRASTED LIVER, SPLEEN, ADRENALS: Evaluation limited by lack of IV contrast. No identified sign ificant masses. PANCREAS: No masses. No peripancreatic inflammatory changes. GALLBLADDER: No identified stones by CT criteria. No inflammatory changes to suggest cholecystitis. RIGHT KIDNEY AND URETER: No suspicious masses. Assessment limited by lack of IV contrast. No signif icant calcifications. No hydronephrosis or hydroureter. LEFT KIDNEY AND URETER: No suspicious masses. Assessment limited by lack of IV contrast. No signifi cant calcifications. No hydronephrosis or hydroureter. AORTA AND RETROPERITONEUM: No aneurysm. No retroperitoneal masses or adenopathy. BOWEL AND PERITONEAL CAVITY: No obvious masses or inflammatory changes. No free fluid. APPENDIX: Not identified. PELVIS, BLADDER, AND ABDOMINAL WALL:No abnormal masses. No free fluid. Bladder normal. BONES: No significant findings. OTHER: No other significant finding. IMPRESSION: NO SIGNIFICANT OR ACUTE PROCESS IN THE ABDOMEN OR PELVIS. COMMENT: Quality ID # [id number]: Final reports with documentation of one or more dose reduction techniques (e.g., Automated exposure control, adjustment of the mA and/or kV according to patient size, use of iterative reconstruction technique) TECHNICAL DOCUMENTATION: JOB ID: [id number] [employer]- All Rights Reserved Reading location - IP/workstation name: [email or web address]
[2018-03-22] MEDS ORDERED: CEPHALEXIN 500 MG CAPSULE PO ONE (20:27)
[2018-03-22 20:34] LABS: CHLAM PCR NOT DETECTED (NOT DETECT); GON PCR NOT DETECTED (NOT DETECT)
== END 2018-03-22 21:55 | disposition home or self-care (01) ==
LOC: ER 18:13
DX: N30.90 Cystitis, unspecified without hematuria (principal); R10.9 Unspecified abdominal pain; K21.9 Gastro-esophageal reflux disease without esophagitis; Z87.442 Personal history of urinary calculi
CPT/HCPCS: 99284; 96361; 96374; 96375; 36415; 87086; 83690; 85025; 80053; 81001; 87491; 87591; 76380; A9270; J1885; J2405; J7030

== ENCOUNTER 2018-03-28 00:19 | Emergency (ER) | payer MEDICARE ==
--- NOTE | 2018-03-28 02:34 | ER Document Report ---
ED General - General Chief Complaint: Bleeding from penis Stated Complaint: BLEEDING FROM PENIS Time Seen by Provider: 03/28/18 01:25 Mode of Arrival: Ambulatory Information source: Patient, Relative Notes: 32-year-old male presents with complaints of blood from his penis. Patient notes he was initially seen there is concerns for STD and was treated for such, he was seen a second time diagnosed with UTI and was started on antibiotics. Patient notes his burning improved however today he started having some small amount of blood. He denies any burning at this time denies any flank pain fevers or chills TRAVEL OUTSIDE OF THE [place] IN LAST 30 DAYS: No - HPI Onset: Just prior to arrival Onset/Duration: Sudden Quality of pain: No pain Severity: Mild Pain Level: Denies Associated symptoms: Other - Blood from penis Exacerbated by: Denies Relieved by: Denies Similar symptoms previously: Yes Recently seen / treated by doctor: Yes - Related Data Allergies/Adverse Reactions: No Known Allergies Allergy (Verified 03/22/18 18:22) Past Medical History - Social History Smoking Status: Never Smoker Cigarette use (# per day): No Chew tobacco use (# tins/day): No Smoking Education Provided: No Frequency of alcohol use: None Drug Abuse: None Family History: Arthritis, DM - mom, Hypertension. denies: CAD, COPD, CVA, Hyperlipidemia, Malignancy, Thyroid Disfunction Patient has suicidal ideation: No Patient has homicidal ideation: No - Past Medical History Cardiac Medical History: Reports: Hx Hypertension Neurological Medical History: Reports: Hx Migraine Renal/ Medical History: Denies: Hx Peritoneal Dialysis GI Medical History: Reports: Hx Gastroesophageal Reflux Disease Musculoskeltal Medical History: Reports Hx Arthritis, Reports Hx Musculoskeletal Deformity, Reports Hx Musculoskeletal Trauma Traumatic Medical History: Reports: Hx Fractures Past Surgical History: Reports: Hx Orthopedic Surgery - Tendon repaired to finger, right knee Review of Systems - Review of Systems Notes: REVIEW OF SYSTEMS: CONSTITUTIONAL : Denies fever, chills, or sweats. Denies recent illness. EENT: Denies eye, ear, throat, or mouth pain or symptoms. Denies nasal or sinus congestion or discharge. Denies throat, tongue, or mouth swelling or difficulty swallowing. CARDIOVASCULAR: Denies chest pain. Denies palpitations or racing or irregular heart beat. Denies ankle edema. RESPIRATORY: Denies cough, cold, or chest congestion. Denies shortness of breath, difficulty breathing, or wheezing. GASTROINTESTINAL: Denies abdominal pain or distention. Denies nausea, vomiting , or diarrhea. Denies blood in vomitus, stools, or per rectum. Denies black, tarry stools. Denies constipation. GENITOURINARY: Admits of blood from the penis MUSCULOSKELETAL: Denies back or neck pain or stiffness. Denies joint pain or swelling. SKIN: Denies rash, lesions or sores. HEMATOLOGIC : Denies easy bruising or bleeding. LYMPHATIC: Denies swollen, enlarged glands. NEUROLOGICAL: Denies confusion or altered mental status. Denies passing out or loss of consciousness. Denies dizziness or lightheadedness. Denies headache. Denies weakness or paralysis or loss of use of either side. Denies problems with gait or speech. Denies sensory loss, numbness, or tingling. Denies seizures. PSYCHIATRIC: Denies anxiety or stress. Denies depression, suicidal ideation, or homicidal ideation. ALL OTHER SYSTEMS REVIEWED AND NEGATIVE. Dictation was performed using [employer] voice recognition software PHYSICAL EXAMINATION: GENERAL: Well-appearing, well-nourished and in no acute distress. HEAD: Atraumatic, normocephalic. EYES: Pupils equal round and reactive to light, extraocular movements intact, sclera anicteric, conjunctiva are normal. ENT: Nares patent, oropharynx clear without exudates. Moist mucous membranes. NECK: Normal range of motion, supple without lymphadenopathy LUNGS: Breath sounds clear to auscultation bilaterally and equal. No wheezes rales or rhonchi. HEART: Regular rate and rhythm without murmurs ABDOMEN: Soft, nontender, nondistended abdomen. No guarding, no rebound. No masses appreciated. Musculoskeletal: Normal range of motion, no pitting or edema. No cyanosis. NEUROLOGICAL: Cranial nerves grossly intact. Normal speech, normal gait. Normal sensory, motor exams PSYCH: Normal mood, normal affect. SKIN: Warm, Dry, normal turgor, no rashes or lesions noted. Physical Exam - Vital signs Vitals: Temp Pulse Resp BP Pulse Ox 98.8 F 90 20 163/103 H 97 03/28/18 00:36 03/28/18 00:36 03/28/18 00:36 03/28/18 00:36 03/28/18 00:36 Course - Re-evaluation Re-evalutation: 03/28/18 05:46 I believe the patient's presentation is secondary to irritation of his bladder, ultrasound was performed no abnormalities were noted, the CT itself noted no abnormalities either. Therefore I will have the patient follow-up with urology and continue with his current course of antibiotics After performing a Medical Screening Examination, I estimate there is LOW risk for ACUTE APPENDICITIS, BOWEL OBSTRUCTION, ACUTE CHOLECYSTITIS, PERFORATED DIVERTICULITIS, INCARCERATED HERNIA, PANCREATITIS, TESTICULAR TORSION or PERFORATED ULCER, thus I consider the discharge disposition reasonable. Also, there is no evidence or peritonitis, sepsis, or toxicity. I have reevaluated this patient multiple times and no significant life threatening changes are noted. The patient and I have discussed the diagnosis and risks, and we agree with discharging home with close follow-up with the understanding that symptoms and presentations can change. We also discussed returning to the Emergency Department immediately if new or worsening symptoms occur. We have discussed the symptoms which are most concerning (e.g., bloody stool, fever, changing or worsening pain, intractable vomiting - standard verbal up date) that necessitate immediate return. - Vital Signs Vital signs: Temp Pulse Resp BP Pulse Ox 98.1 F 84 19 131/93 H 96 03/28/18 04:50 03/28/18 04:50 03/28/18 04:50 03/28/18 04:50 03/28/18 04:50 - Laboratory Laboratory results interpreted by me: 03/28/18 01:50 Urine Blood MODERATE H - Diagnostic Test Radiology reviewed: Image reviewed - Ultrasound abdomen renal there is no acute abnormality, Reports reviewed Discharge - Discharge Clinical Impression: Hematuria Qualifiers: Hematuria type: benign essential microscopic Qualified Code(s): R31.1 - Benign essential microscopic hematuria Condition: Stable Disposition: HOME, SELF-CARE Instructions: Hematuria ([facility]) Additional Instructions: Please follow-up with your urologist per your previous appointments return immediately if there are any other concerns Forms: Return to Work
[2018-03-28 02:40] LABS: APPEARANCE,URINE CLEAR; BILIRUBIN,URINE NEGATIVE (NEGATIVE); COLOR,URINE STRAW; GLUCOSE, URINE NEGATIVE (NEGATIVE); KETONES,URINE NEGATIVE (NEGATIVE); LEUKOCYTE ESTERASE,URINE NEGATIVE (NEGATIVE); NITRITE,URINE NEGATIVE (NEGATIVE); PROTEIN,URINE NEGATIVE (NEGATIVE); URINE SPECIFIC GRAVITY 1.005; UROBILINOGEN,URINE NEGATIVE mg/dL (<2.0)
--- NOTE | 2018-03-28 03:50 | RADIOLOGY REPORT (SQ) ---
EXAM DESCRIPTION: Ultrasound, renal CLINICAL HISTORY: 32 years, Male, bladder hematuria COMPARISON: None. LIMITATIONS: None. FINDINGS: 11 cm bilateral kidneys, bilateral ureteral jets flow demonstrated, and urinary bladder are otherwise unremarkable. IMPRESSION: Normal renal sonogram.
[2018-03-28 04:54] VITALS: BP 131/93
== END 2018-03-28 05:01 | disposition home or self-care (01) ==
LOC: ER 00:19
DX: N39.0 Urinary tract infection, site not specified (principal); R31.1 Benign essential microscopic hematuria; Z87.440 Personal history of urinary (tract) infections; I10 Essential (primary) hypertension
CPT/HCPCS: 76770; 81001; 99284